=== PATIENT | male | born 1950 | race Two or more races ===

== ENCOUNTER 2023-11-19 18:43 | Emergency (ER) | payer OTHER ==
[~2023-11-19] VITALS: Ht 167.6 cm; Wt 77.1 kg
[2023-11-19] MEDS ORDERED: TRULICITY1.5 MG/0.5 (18:47)
[2023-11-19] MEDS ORDERED: SYNTHROID150 MCG (18:47)
[2023-11-19] MEDS ORDERED: COZAAR25 MG (18:48)
[2023-11-19] MEDS ORDERED: 0.9 % SODIUM CHLORIDE 1,000 ML IV ONE (19:00)
[2023-11-19] MEDS ORDERED: KETOROLAC TROMETHAMINE 60 MG VIAL IM ONE ×3 (19:00→20:23)
[2023-11-19] MEDS ORDERED: FAMOtidine 10 MG/ML (4ML VIAL) IV ONE (19:00)
[2023-11-19] MEDS ORDERED: FAMOTIDINE/PF 20 MG/2 ML VIAL ONE (19:10)
[2023-11-19 20:13] LABS: HEMATOCRIT 40.7 % (39.0-48.0); HEMOGLOBIN 14.2 g/dL (13-16.00); MEAN CELL VOLUME 96.1 fL (80.0-100.00); MEAN CORPUSCULAR HEMOGLOBIN 33.5 pg (27.00-32.0); MEAN CORPUSCULAR HGB CONC 34.9 g/dl (32.0-36.0); PLATELET COUNT 201 K/uL (150-450); RED BLOOD COUNT 4.24 M/uL (4.00-6.00); RED CELL DISTRIBUTION WIDTH 13.6 % (11.5-14.5)
[2023-11-19 20:32] LABS: PH,URINE 7.5 (5.0-8.0); URINE APPEARANCE Clear; URINE BILIRRUBIN Negative (NEGATIVE); URINE BLOOD Negative; URINE COLOR Yellow; URINE GLUCOSE Negative (NEGATIVE); URINE KETONE Negative (NEGATIVE); URINE LEUKOCYTE Negative; URINE NITRATE Negative; URINE PROTEIN Negative (NEGATIVE); URINE UROBILINOGEN 0.2 E.U./dl
[2023-11-19 20:35] LABS: ALBUMIN 3.6 gm/dL (3.4-5.0); BILIRUBIN TOTAL 0.29 mg/dL (0.3-1.2); CALCIUM 9.5 mg/dL (8.5-10.1); CREATININE SERUM 1.11 mg/dL (0.70-1.30); GFR 64.58; GLOBULINA 3.9 G/DL (2.4-3.5); POTASSIUM 3.75 mEq/L (3.5-5.1); TOTAL PROTEIN 7.5 gm/dL (6.4-8.2)
[2023-11-19 20:36] LABS: URINE BACTERIA 33.9 uL (0.0-1933); URINE EPITHELIAL CELLS 2.1 uL (0.0-38.8); URINE WBC 3.6 uL (0.0-23.2)
[2023-11-19 21:06] LABS: URINE RBC 1.8 uL (0.0-20.8)
[2023-11-19] MEDS ORDERED: KETO10TA2 PO (22:15)
[2023-11-19] MEDS ORDERED: MIRALAX17 GM PO (22:15)
== END 2023-11-19 22:27 | disposition home or self-care (01) ==
LOC: ER 18:44
PROVIDERS: General Practice
DX: K59.00 Constipation, unspecified (principal); R10.9 Unspecified abdominal pain; I10 Essential (primary) hypertension; E03.8 Other specified hypothyroidism; E11.9 Type 2 diabetes mellitus without complications
CPT/HCPCS: 36415; 74177; 93005; 96365; 96366; 96372; 99284; J1885; J3490; J7030; Q9965